=== PATIENT | male | born 1980 | race Caucasian/White ===

== ENCOUNTER 2021-04-16 16:05 | Emergency (ER) | payer MEDICAID ==
[2021-04-16] MEDS ORDERED: Ketorolac 60 MG/2 ML SDV IM ONE (16:55)
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
--- NOTE | 2021-04-17 10:31 | CRLCR ---
HISTORY: Left hip pain. TECHNIQUE: Two views of the left hip. COMPARISON: No prior. 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 There is degenerative arthrosis of the left hip with moderate osteophyte formation. Ossified body is present inferiorly. No acute fracture. IMPRESSION: 1. 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 2. Degenerative arthrosis of the left hip with moderate osteophyte formation. No joint space narrowing. Ossified body inferiorly. Dictated by Levon Abdi MD @ 04/17/2021 10:30:[address] Levon Abdi @ Apr 17 2021 10:30AM
== END 2021-04-16 17:56 | disposition home or self-care (01) ==
LOC: JP.ED 16:05
DX: M25.552 Pain in left hip (principal); Z88.0 Allergy status to penicillin; Z72.0 Tobacco use
CPT/HCPCS: 73502; 96372; 99282; 99283; J1885

== ENCOUNTER 2021-05-08 05:13 | Inpatient (IN) | payer MEDICAID ==
[2021-05-08] MEDS ORDERED: Lactated Ringers 1,000 ML IV SCH (06:00)
[2021-05-08 06:20] LABS: CORONAVIRUS COVID-19 NAA NEGATIVE (NEGATIVE)
[2021-05-08] MEDS ORDERED: Povidone-Iodine 10% Soln 118.25 ML Bottle ONE (06:38)
[2021-05-08] MEDS ORDERED: Nozin Nasal Sanitizer NASBOTH SCH (07:00)
[2021-05-08] MEDS ORDERED: fentaNYL 100 MCG/2 ML SDV ONE ×3 (07:11→10:57)
[2021-05-08] MEDS ORDERED: Midazolam 1 MG/ML 2 ML SDV ONE ×2 (07:11→08:07)
[2021-05-08] MEDS ORDERED: Propofol 200 MG/20 ML SDV ONE (07:13)
[2021-05-08] MEDS ORDERED: ceFAZolin 2 GM in Sodium Chloride 0.9% 100 ML IV ONE (07:15)
[2021-05-08] MEDS ORDERED: ceFAZolin 2 GM in Premix Bag 1 BAG IV ONE (07:15)
[2021-05-08] MEDS ORDERED: Tranexamic Acid 1,000 MG in Sodium Chloride 0.9% 50 ML IV ONE (07:45)
[2021-05-08] MEDS ORDERED: Ondansetron 4 MG/2 ML SDV ONE (08:12)
[2021-05-08] MEDS ORDERED: Rocuronium 50 MG/5 ML Vial ONE (08:12)
[2021-05-08] MEDS ORDERED: Dexamethasone 4 MG/ML SDV ONE (08:12)
[2021-05-08] MEDS ORDERED: Succinylcholine 200 MG/10 ML MDV ONE (08:12)
[2021-05-08] MEDS ORDERED: Neostigmine Methylsulfate 1 MG/ML 5 ML Syringe ONE (08:51)
[2021-05-08] MEDS ORDERED: Glycopyrrolate 0.2 MG/ML 5 ML MDV ONE (08:51)
[2021-05-08] MEDS ORDERED: fentaNYL 250 MCG/5 ML SDV ONE ×2 (09:00→10:00)
[2021-05-08] MEDS ORDERED: Lactated Ringers 1,000 ML ONE (09:34)
[2021-05-08] MEDS ORDERED: Tranexamic Acid 1,000 MG in Sodium Chloride 0.9% 50 ML IV PRN (10:00)
[2021-05-08] MEDS ORDERED: Acetaminophen/HYDROcodone 325-5 MG Tab PO PRN (11:09)
[2021-05-08] MEDS ORDERED: Magnesium Hydroxide 400 MG/5 ML Susp 30 ML Cup PO PRN (11:09)
[2021-05-08] MEDS ORDERED: Acetaminophen 325 MG Tab PO PRN (11:09)
[2021-05-08] MEDS ORDERED: Ondansetron 4 MG/2 ML SDV IVPUSH PRN (11:09)
[2021-05-08] MEDS ORDERED: Morphine 2 MG/ML SYRINGE SUBCUT PRN (11:09)
[2021-05-08] MEDS ORDERED: Morphine 2 MG/ML SYRINGE IVPUSH ONE (11:40)
[2021-05-08] MEDS ORDERED: hydrOXYzine HCL 100 MG/2 ML SDV IM ONE (11:52)
[2021-05-08] MEDS ORDERED: fentaNYL 100 MCG/2 ML SDV IVPUSH ONE (11:52)
--- NOTE | 2021-05-08 12:15 | CR ---
Pelvis 1V or 2V CLINICAL HISTORY: Left hip arthroplasty FINDINGS: Patient is status post placement of a total left hip arthroplasty. Components appear well seated. IMPRESSION: Status post total left hip arthroplasty
[2021-05-08] MEDS: Sodium Chloride 0.9% 1,000 ML IV SCH ×2 (12:16→17:49)
[2021-05-08] MEDS ORDERED: Labetalol 20 MG/4 ML Syringe IVPUSH ONE (12:22)
[2021-05-08] MEDS: Acetaminophen/oxyCODONE 325-5 MG Tab PO PRN ×2 (13:01→22:08)
[2021-05-08] MEDS: Ketorolac 30 MG/ML SDV IVPUSH PRN ×2 (13:02→22:08)
[2021-05-08] MEDS: Gabapentin 300 MG Cap PO SCH ×2 (14:53→21:01)
[2021-05-08] MEDS: ceFAZolin 1 GM in Premix Bag 1 BAG IV SCH ×2 (14:54→21:02)
[2021-05-08] MEDS: Nozin Nasal Sanitizer NASBOTH SCH (21:00)
[2021-05-08] MEDS: Docusate Sodium 100 MG Cap PO SCH (21:01)
[2021-05-08] MEDS ORDERED: Nicotine 14 MG/24 Hr Patch TRDERM SCH (21:45)
[2021-05-09] MEDS: Acetaminophen/oxyCODONE 325-5 MG Tab PO PRN ×5 (01:57→19:51)
[2021-05-09] MEDS: Sodium Chloride 0.9% 1,000 ML IV SCH (03:47)
[2021-05-09] MEDS: ceFAZolin 1 GM in Premix Bag 1 BAG IV SCH (05:40)
[2021-05-09] MEDS: Ketorolac 30 MG/ML SDV IVPUSH PRN ×3 (06:02→22:23)
--- NOTE | 2021-05-09 08:01 | PCM.SURGPN ---
- General Info Date of Service: 05/09/21 Date of Surgery/Procedure: 05/08/21 POD#: 1 Post-Op Diagnosis: left hip osteoarthritis Functional Status: Reports: Tolerating Diet, Urinating, Incentive Spirometry - Review of Systems General: Reports: No Symptoms HEENT: Reports: No Symptoms Pulmonary: Reports: No Symptoms Cardiovascular: Reports: No Symptoms Gastrointestinal: Reports: No Symptoms Genitourinary: Reports: No Symptoms Musculoskeletal: Reports: Leg Pain (left ), Joint Pain (left hip ) Skin: Reports: No Symptoms Neurological: Reports: No Symptoms Psychiatric: Reports: No Symptoms - Patient Data Vitals - Most Recent: Last Vital Signs Temp 96.1 F L 05/09/21 07:00 Pulse 65 05/09/21 07:00 Resp 16 05/09/21 07:00 BP 125/75 05/09/21 07:00 Pulse Ox 97 05/09/21 07:00 Weight - Most Recent: 250 lb 4.8 oz I&O - Last 24 Hours: Intake & Output 05/08/21 05/09/21 05/09/21 22:59 06:59 14:59 Intake Total 1300 2890 Output Total 1350 Balance 1300 1540 Lab Results Last 24 Hrs: Laboratory Results - last 24 hr 05/09/21 Range/Units 04:30 WBC 12.3 H (4.5-11.0) K/uL RBC 3.62 L (4.30-5.90) M/uL Hgb 11.0 L D (12.0-15.0) g/dL Hct 33.4 L (40.0-54.0) % MCV 92 (80-98) fL MCH 30 (27-31) pg MCHC 33 (32-36) % Plt Count 116 L (150-400) K/uL Med Orders - Current: Current Medications Acetaminophen (Acetaminophen 325 Mg Tab) 650 mg PO Q4H PRN PRN Reason: Pain/Fever Hydrocodone Bitart/Acetaminophen (Acetaminophen/Hydrocodone 325-5 Mg Tab) 1 tab PO Q4H PRN PRN Reason: Pain (mild 1-3) Bandage/Support Products (Nozin Nasal Grad Intern) 1 applic NASBOTH BID [facility] Stop: 05/14/21 21:01 Last Admin: 05/08/21 21:00 Dose: 1 each Documented by: Docusate Sodium (Docusate Sodium 100 Mg Cap) 100 mg PO BID [facility] Last Admin: 05/08/21 21:01 Dose: Not Given Documented by: Enoxaparin Sodium (Enoxaparin 30 Mg/0.3 Ml Syringe) 30 mg SUBCUT DAILY [facility] Gabapentin (Gabapentin 300 Mg Cap) 600 mg PO TID [facility] Last Admin: 05/08/21 21:01 Dose: 600 mg Documented by: Ketorolac Tromethamine (Ketorolac 30 Mg/Ml Sdv) 30 mg IVPUSH Q6H PRN PRN Reason: Breakthrough Pain Last Admin: 05/09/21 06:02 Dose: 30 mg Documented by: Magnesium Hydroxide (Magnesium Hydroxide 400 Mg/5 Ml Susp 30 Ml Cup) 30 ml PO Q6H PRN PRN Reason: Stool Softener Morphine Sulfate (Morphine 2 Mg/Ml Syringe) 1 mg IV Q1H PRN PRN Reason: Breakthrough Pain Nicotine (Nicotine 14 Mg/24 Hr Patch) 14 mg TRDERM DAILY [facility] Last Admin: 05/08/21 22:02 Dose: 14 mg Documented by: Nicotine (Nicotine 7 Mg/24 Hr Patch) 7 mg TRDERM DAILY [facility] Ondansetron HCl (Ondansetron 4 Mg/2 Ml Sdv) 4 mg IVPUSH Q6H PRN PRN Reason: Nausea/Vomiting Oxycodone/Acetaminophen (Acetaminophen/Oxycodone 325-5 Mg Tab) 1 - 2 tab PO Q4H PRN PRN Reason: Pain Last Admin: 05/09/21 06:03 Dose: 1 tab Documented by: Triamterene/Hydrochlorothiazide (Hydrochlorothiazide/Triamterene 25-37.5 Tab) 1 each PO DAILY [facility] Discontinued Medications Bandage/Support Products (Nozin Nasal Grad Intern) 1 applic NASBOTH BID [facility] Last Admin: 05/08/21 06:12 Dose: 1 applic Documented by: Dexamethasone (Dexamethasone 4 Mg/Ml Sdv) Confirm Administered Dose 4 mg .ROUTE .STK-MED ONE Stop: 05/08/21 08:13 Fentanyl (Fentanyl 100 Mcg/2 Ml Sdv) Confirm Administered Dose 100 mcg .ROUTE .STK-MED ONE Stop: 05/08/21 07:12 Fentanyl (Fentanyl 100 Mcg/2 Ml Sdv) Confirm Administered Dose 100 mcg .ROUTE .STK-MED ONE Stop: 05/08/21 08:09 Fentanyl (Fentanyl 250 Mcg/5 Ml Sdv) Confirm Administered Dose 250 mcg .ROUTE .STK-MED ONE Stop: 05/08/21 09:01 Fentanyl (Fentanyl 250 Mcg/5 Ml Sdv) Confirm Administered Dose 250 mcg .ROUTE .STK-MED ONE Stop: 05/08/21 10:01 Fentanyl (Fentanyl 100 Mcg/2 Ml Sdv) Confirm Administered Dose 100 mcg .ROUTE .STK-MED ONE Stop: 05/08/21 10:58 Fentanyl (Fentanyl 100 Mcg/2 Ml Sdv) 50 mcg IVPUSH ONETIME ONE Stop: 05/08/21 11:53 Last Admin: 05/08/21 11:57 Dose: 50 mcg Documented by: Glycopyrrolate (Glycopyrrolate 0.2 Mg/Ml 5 Ml Mdv) Confirm Administered Dose 1 mg .ROUTE .STK-MED ONE Stop: 05/08/21 08:52 Hydroxyzine HCl (Hydroxyzine Hcl 100 Mg/2 Ml Sdv) 100 mg IM ONETIME ONE Stop: 05/08/21 11:53 Last Admin: 05/08/21 12:00 Dose: 100 mg Documented by: Tranexamic Acid 1,000 mg/ (Sodium Chloride) 60 mls @ 240 mls/hr IV ONETIME ONE Stop: 05/08/21 07:59 Last Admin: 05/08/21 07:49 Dose: 240 mls/hr Documented by: Tranexamic Acid 1,000 mg/ (Sodium Chloride) 60 mls @ 240 mls/hr IV ASDIRECTED PRN PRN Reason: 2ND DOSE IF REQUESTED BY Lactated Ringer's (Ringers, Lactated) 1,000 mls @ 75 mls/hr IV ASDIRECTED [facility] Last Admin: 05/08/21 06:14 Dose: 75 mls/hr Documented by: Cefazolin Sodium/Dextrose 2 gm (/ Premix) 50 mls @ 100 mls/hr IV ONETIME ONE Stop: 05/08/21 07:44 Last Admin: 05/08/21 07:49 Dose: 100 mls/hr Documented by: Lactated Ringer's (Ringers, Lactated) Confirm Administered Dose 1,000 mls @ as directed .ROUTE .ST-MED ONE Stop: 05/08/21 09:35 Sodium Chloride (Normal Saline) 1,000 mls @ 125 mls/hr IV ASDIRECTED [facility] Last Admin: 05/09/21 03:47 Dose: 125 mls/hr Documented by: Cefazolin Sodium/Dextrose 1 gm (/ Premix) 50 mls @ 100 mls/hr IV Q8H [facility] Stop: 05/09/21 06:29 Last Admin: 05/09/21 05:40 Dose: 100 mls/hr Documented by: Labetalol HCl (Labetalol 20 Mg/4 Ml Syringe) 10 mg IVPUSH ONETIME ONE; Protocol Stop: 05/08/21 12:23 Last Admin: 05/08/21 12:25 Dose: 10 mg Documented by: Midazolam HCl (Midazolam 1 Mg/Ml 2 Ml Sdv) Confirm Administered Dose 2 mg .ROUTE .STK-MED ONE Stop: 05/08/21 07:12 Midazolam HCl (Midazolam 1 Mg/Ml 2 Ml Sdv) Confirm Administered Dose 2 mg .ROUTE .STK-MED ONE Stop: 05/08/21 08:08 Morphine Sulfate (Morphine 2 Mg/Ml Syringe) 1 mg SUBCUT Q1H PRN PRN Reason: Breakthrough Pain Morphine Sulfate (Morphine 2 Mg/Ml Syringe) 2 mg IVPUSH ONETIME ONE Stop: 05/08/21 11:41 Last Admin: 05/08/21 11:36 Dose: 2 mg Documented by: Neostigmine Methylsulfate (Neostigmine Methylsulfate 1 Mg/Ml 5 Ml Syringe) Confirm Administered Dose 5 mg .ROUTE .STK-MED ONE Stop: 05/08/21 08:52 Ondansetron HCl (Ondansetron 4 Mg/2 Ml Sdv) Confirm Administered Dose 4 mg .ROUTE .STK-MED ONE Stop: 05/08/21 08:13 Povidone Iodine (Povidone-Iodine 10% Soln 118.25 Ml Bottle) Confirm Administered Dose 1 ml .ROUTE .STK-MED ONE Stop: 05/08/21 06:39 Last Admin: 05/08/21 08:38 Dose: 40 ml Documented by: Propofol (Propofol 200 Mg/20 Ml Sdv) Confirm Administered Dose 200 mg .ROUTE .STK-MED ONE Stop: 05/08/21 07:14 Rocuronium [place] (Rocuronium 50 Mg/5 Ml Vial) Confirm Administered Dose 50 mg .ROUTE .STK-MED ONE Stop: 05/08/21 08:13 Succinylcholine Chloride (Succinylcholine 200 Mg/10 Ml Mdv) Confirm Administered Dose 200 mg .ROUTE .STK-MED ONE Stop: 05/08/21 08:13 - Exam Wound/Incisions: Dressing Dry and Intact, No Drainage Quality Assessment: DVT Prophylaxis General: Alert, Oriented, Cooperative, No Acute Distress Extremities: Normal Capillary Refill, Leg Pain (left ), Limited Range of Motion Skin: Dry, Intact Neurological: No New Focal Deficit Psy/Mental Status: Alert, Normal Affect, Normal Mood Sepsis Event Note - Evaluation Sepsis Screening Result: No Definite Risk - Focused Exam Vital Signs: Vital Signs Temp Pulse Resp BP Pulse Ox 05/09/21 07:00 96.1 F L 65 16 125/75 97 05/09/21 01:11 97 F 70 16 129/77 97 05/08/21 20:43 97.7 F 74 16 148/87 H 99 - Problem List & Annotations (1) Status post total replacement of left hip SNOMED Code(s): 510275088617, 708050281782 Code(s): Z96.642 - PRESENCE OF LEFT ARTIFICIAL HIP JOINT Status: Acute Current Visit: Yes - Problem List Review Problem List Initiated/Reviewed/Updated: Yes - My Orders Last 24 Hours: Active Orders 24 hr Category Date Time Status Patient Status [ADT] Routine ADT 05/08/21 11:09 Active Ambulate [RC] PER UNIT ROUTINE Care 05/08/21 11:09 Active Head of Bed Elevation [RC] ASDIRECTED Care 05/08/21 11:09 Active Neurovascular Check [RC] BID Care 05/08/21 11:09 Active Notify Provider Intake and Out [RC] ASDIRECTED Care 05/08/21 11:09 Active Notify Provider Vital Signs [RC] ASDIRECTED Care 05/08/21 11:09 Active Oxygen Therapy [RC] PRN Care 05/08/21 11:09 Active Pneumonia Education [RC] UPON Care 05/08/21 11:09 Active Pulse Oximetry [RC] INTERMITTENT Care 05/08/21 11:09 Active RT Incentive Spirometry [RC] Q1HWA Care 05/08/21 11:09 Active Up to Chair [RC] QID Care 05/08/21 11:09 Active VTE/DVT Education [RC] Click to Edit Care 05/08/21 11:09 Active Vital Signs [RC] PER UNIT ROUTINE Care 05/08/21 11:09 Active Wound Care [RC] Q12H Care 05/08/21 11:09 Active Consult to Case Management/Dietary Director [CONS] Cons 05/08/21 11:09 Active Routine OT Evaluation and Treatment [CONS] Routine Cons 05/08/21 11:13 Active PT Evaluation and Treatment [CONS] Routine Cons 05/08/21 11:09 Active PT Evaluation and Treatment [CONS] Routine Cons 05/08/21 11:09 Active Regular Diet [DIET] Diet 05/08/21 Lunch Active Acetaminophen [TylenoL] Med 05/08/21 11:09 Active 650 mg PO Q4H PRN Acetaminophen/HYDROcodone [[place] 325-5 MG] Med 05/08/21 11:09 Active 1 tab PO Q4H PRN Acetaminophen/oxyCODONE [Percocet 325-5 MG] Med 05/08/21 11:16 Active 1 - 2 tab PO Q4H PRN Docusate Sodium [Colace] Med 05/08/21 21:00 Active 100 mg PO BID Enoxaparin [Lovenox] Med 05/09/21 09:00 Active 30 mg SUBCUT DAILY Gabapentin [Neurontin] Med 05/08/21 14:00 Active 600 mg PO TID HCTZ/Triamterene [Maxzide 25-37.5 MG] Med 05/09/21 09:00 Active 1 each PO DAILY Ketorolac [Toradol] Med 05/08/21 11:18 Active 30 mg IVPUSH Q6H PRN Magnesium Hydroxide [Milk of Magnesia] Med 05/08/21 11:09 Active 30 ml PO Q6H PRN Morphine Med 05/08/21 16:56 Active 1 mg IV Q1H PRN Nicotine [Habitrol] Med 05/08/21 21:45 Active 14 mg TRDERM DAILY Nicotine [Habitrol] Med 05/09/21 09:00 Ordered 7 mg TRDERM DAILY Nozin [ Nasal Grad Intern] Med 05/08/21 21:00 Active 1 applic NASBOTH BID Ondansetron [Zofran] Med 05/08/21 11:09 Active 4 mg IVPUSH Q6H PRN Antiembolic Hose [OM.PC] Per Unit Routine Oth 05/08/21 11:09 Ordered DME for Inpatients [OM.PC] Routine Ot 05/08/21 11:09 Ordered DVT/VTE Prophylaxis Reflex [OM.PC] Routine Oth 05/08/21 11:09 Ordered Ice Therapy [OM.PC] Per Unit Routine Ot 05/08/21 11:09 Ordered Oral Care [OM.PC] Routine Ot 05/08/21 11:09 Ordered Sequential Compression Device [OM.PC] Routine Ot 05/08/21 11:09 Ordered Sequential Compression Device [OM.PC] Routine Ot 05/08/21 11:09 Ordered Weight bearing status [OM.PC] Routine Ot 05/08/21 11:09 Ordered Resuscitation Status Routine Resus Stat 05/08/21 11:09 Ordered Medication Orders Acetaminophen (Acetaminophen 325 Mg Tab) 650 mg PO Q4H PRN PRN Reason: Pain/Fever Hydrocodone Bitart/Acetaminophen (Acetaminophen/Hydrocodone 325-5 Mg Tab) 1 tab PO Q4H PRN PRN Reason: Pain (mild 1-3) Bandage/Support Products (Nozin Nasal Grad Intern) 1 applic NASBOTH BID [facility] Stop: 05/14/21 21:01 Last Admin: 05/08/21 21:00 Dose: 1 each Documented by: CANELO Docusate Sodium (Docusate Sodium 100 Mg Cap) 100 mg PO BID [facility] Last Admin: 05/08/21 21:01 Dose: Not Given Documented by: CANELO Enoxaparin Sodium (Enoxaparin 30 Mg/0.3 Ml Syringe) 30 mg SUBCUT DAILY [facility] Gabapentin (Gabapentin 300 Mg Cap) 600 mg PO TID [facility] Last Admin: 05/08/21 21:01 Dose: 600 mg Documented by: Admin: 05/08/21 14:53 Dose: 600 mg Documented by: JOHN Ketorolac Tromethamine (Ketorolac 30 Mg/Ml Sdv) 30 mg IVPUSH Q6H PRN PRN Reason: Breakthrough Pain Last Admin: 05/09/21 06:02 Dose: 30 mg Documented by: Admin: 05/08/21 22:08 Dose: 30 mg Documented by: Admin: 05/08/21 13:02 Dose: 30 mg Documented by: JOHN Magnesium Hydroxide (Magnesium Hydroxide 400 Mg/5 Ml Susp 30 Ml Cup) 30 ml PO Q6H PRN PRN Reason: Stool Softener Morphine Sulfate (Morphine 2 Mg/Ml Syringe) 1 mg IV Q1H PRN PRN Reason: Breakthrough Pain Nicotine (Nicotine 14 Mg/24 Hr Patch) 14 mg TRDERM DAILY [facility] Last Admin: 05/08/21 22:02 Dose: 14 mg Documented by: CANELO Nicotine (Nicotine 7 Mg/24 Hr Patch) 7 mg TRDERM DAILY [facility] Ondansetron HCl (Ondansetron 4 Mg/2 Ml Sdv) 4 mg IVPUSH Q6H PRN PRN Reason: Nausea/Vomiting Oxycodone/Acetaminophen (Acetaminophen/Oxycodone 325-5 Mg Tab) 1 - 2 tab PO Q4H PRN PRN Reason: Pain Last Admin: 05/09/21 06:03 Dose: 1 tab Documented by: Admin: 05/09/21 01:57 Dose: 2 tab Documented by: Admin: 05/08/21 22:08 Dose: 2 tab Documented by: Admin: 05/08/21 13:01 Dose: 2 tab Documented by: JOHN Triamterene/Hydrochlorothiazide (Hydrochlorothiazide/Triamterene 25-37.5 Tab) 1 each PO DAILY [facility] - Assessment Assessment (Free Text/Narrative):: Patient is a pleasant 40 y/o male, status post left total hip arthroplasty, POD#1. Patient tolerated surgery well with no complications. No acute events overnight. Was hypertensive throughout yesterday, BP improving this morning. Anticipate home antihypertensive medication administration this morning. Did require 2L of O2 following operation, has since been weaned to room air and maintaining oxygen saturations >90%. White count is slightly elevated at 12.3 Patient denied subjective fever, chills, weakness, nor shortness of breath. Has been using incentive spirometer intermittently. Has been tolerating regular diet well. No nausea or emesis. Patient notes pain is well controlled this morning. Increase discomfort in left hip with transfers, but minimal to no pain at rest. Has transferred from bed to chair with FWW, but has not ambulated further than this. Will require status change from same day s urgery to inpatient to allow for further therapy services to progress ambulation abilities to be safe for discharge to home. Patient states the current 14 mg Nicotine patch is not helping, continues to have strong cravings. Exam: Left hip dressing is dry and intact. No surrounding erythema, ecchymosis, warmth to touch, nor drainage around dressing on left hip. Jude stockings on bilateral LEs, no significant pedal edema. Tibialis posterior pulse appreciated, 2+. Sensation to L LE intact. Dorsiflexion: 4+/5. Plantar flexion: 5/5. Plan: * Status change to inpatient to allow for patient to have additional physical therapy services to progress ambulation abilities to be safe for discharge to home * Patient to participate in PT and OT daily while in the hospital * Encouraged patient to use Incentive Spirometer hourly * Continue with current pain regimen * Continue with 30 mg Lovenox subcutaneous qd for chemical DVT/VTE prophylaxis while in the hospital. Will transition to Aspirin BID upon discharge. Bilateral LE SCDs for mechanical prophylaxis * IV to be saline locked this morning * Additional 7 mg Nicotine patch ordered this morning * Dressing to be changed on POD#2 by orthopedic provider * Anticipate discharge to home, likely tomorrow, pending ambulation status progresses, patient remains medically stable, and pain is controlled with PO medications
[2021-05-09] MEDS: Nicotine 21 MG/24 Hr Patch TRDERM SCH (08:24)
[2021-05-09] MEDS: Enoxaparin 30 MG/0.3 ML Syringe SUBCUT SCH (08:26)
[2021-05-09] MEDS: Nozin Nasal Sanitizer NASBOTH SCH ×2 (08:26→20:04)
[2021-05-09] MEDS: Gabapentin 300 MG Cap PO SCH ×3 (08:27→20:03)
[2021-05-09] MEDS: Docusate Sodium 100 MG Cap PO SCH ×2 (08:27→20:04)
[2021-05-09] MEDS: Hydrochlorothiazide/Triamterene 25-37.5 Tab PO SCH (08:27)
[2021-05-09] MEDS ORDERED: Nicotine 7 MG/24 Hr Patch TRDERM SCH (09:00)
[2021-05-09] MEDS: Morphine 2 MG/ML SYRINGE IV PRN (17:54)
[2021-05-10] MEDS: Acetaminophen/oxyCODONE 325-5 MG Tab PO PRN ×3 (02:10→10:56)
[2021-05-10] MEDS: Morphine 2 MG/ML SYRINGE IV PRN (08:36)
[2021-05-10] MEDS: Ketorolac 30 MG/ML SDV IVPUSH PRN (08:37)
[2021-05-10] MEDS: Enoxaparin 30 MG/0.3 ML Syringe SUBCUT SCH (08:42)
[2021-05-10] MEDS: Nicotine 21 MG/24 Hr Patch TRDERM SCH (08:42)
[2021-05-10] MEDS: Hydrochlorothiazide/Triamterene 25-37.5 Tab PO SCH (08:42)
[2021-05-10] MEDS: Docusate Sodium 100 MG Cap PO SCH (08:42)
[2021-05-10] MEDS: Gabapentin 300 MG Cap PO SCH ×2 (08:42→14:03)
[2021-05-10] MEDS: Nozin Nasal Sanitizer NASBOTH SCH (08:42)
--- NOTE | 2021-05-10 12:07 | PCM.DCSUM1 ---
Discharge Summary - Hospital Course HPI Initial Comments: Patient is a pleasant 40 y/o male, suffered from left hip osteoarthritis. Symptoms refractory to conservative management, elected to undergo a left total hip arthroplasty. Patient tolerated surgery well, no complications. Hospital stay prolonged to allow for additional therapy services to be safe for discharge home and obtaining adequate pain control with PO medications. Diagnosis: Stroke: No Modified Williams Scale: No Symptoms at All Modified Williams Scale Score: 0 - Discharge Data Discharge Date: 05/10/21 Discharge Disposition: Home, Self-Care 01 Condition: Good - Referral to Home Health Date of Face to Face Encounter: 05/10/21 Reason for Homebound Status: Motivated to go home, demonstrates independence in ADLs with assistive equipment, ambulates safely with FWW, demonstrates competency on stairs Primary Care Physician: Jesus Vargas MD - Discharge Diagnosis/Problem(s) (1) Status post total replacement of left hip SNOMED Code(s): [id number], [id number] ICD Code: Z96.642 - PRESENCE OF LEFT ARTIFICIAL HIP JOINT Status: Acute Current Visit: Yes - Patient Summary/Data Operative Procedure(s) Performed: left total hip arthroplasty Consults: Consultations 05/08/21 11:09 Consult to Case Management/Director [employer] [CONS] Routine Comment: Physician Instructions: Discharge placement post hip surgery Service(s) to be Consulted: Case Management Special Instructions: s/p L JOAO, likely dc to home. PT Evaluation and Treatment [CONS] Routine Please Evaluate and Treat. PT Reason for Consult: Ambulation Discharge Disposition: Home w Home Health Special Instructions: posterior hip precautions, WBAT This query below is only for informational purposes and is not editable. PT Evaluation and Treatment [CONS] Routine Please Evaluate and Treat. PT Reason for Consult: Post op Ortho Surgery Hip Pending Discharge: Yes, 2- -3 days Special Instructions: Schedule first outpatient P.T. appointment 3 - 5 days post discharge This query below is only for informational purposes and is not editable. 05/08/21 11:13 OT Evaluation and Treatment [CONS] Routine Please Evaluate and Treat. OT Reason for Consult: ADL's Special Instructions: Status post Hip Surgery This query below is only for informational purposes and is not editable. Hospital Course: Patient is a pleasant 40 y/o male, s/p left total hip arthroplasty, POD#2. Patient tolerated surgery well, there were no major complications. No acute events in the post operative period. Patient's pain has been well controlled throughout stay. Utilized Morphine, Toradol, and Percocet throughout stay, weaned to Percocet only prior to discharge and maintained adequate pain control with this. Tolerated regular diet well, no nausea or emesis. Patient has remained hemodynamically stable throughout stay. No fevers or chills, nor dyspnea. Did require 2L O2 following surgery, but has been on room air since the morning of POD#1 maintaining O2 saturations >90%. HgB POD#1 declined to 11.0; denied dizziness, orthostatic hypotension, nor fatigue. Denied dyspnea. IV was saline locked POD#1. Patient showered & left hip dressing changed POD#2. Patient participated in PT and OT daily throughout stay. Demonstrated competency ambulating with FWW up to 162 ft. Also ascended and descended stairs safely. Performed bilateral LE strengthening exercises. Able to complete ADLs with minimal assistive equipment. Exam: Incision well approximated and intact, steristrips above incision with minimal dried drainage. No surrounding erythema of incision, mild warmth to to uch. New dressing applied over L hip; dry and intact. Ecchymosis present over left hip. No significant edema present on LLE. L posterior tibialis pulse appreciated, 2+. Sensation to L LE intact. Dorsiflexion: 5/5. Plantar flexion: 5/5. L calf is soft and supple. Negative sebastian's sign. - Patient Instructions Diet: Regular Diet as Tolerated Activity: Apply Ice, Full Weight Bearing Driving: Do Not Drive Showering/Bathing: May Shower Wound/Incision Care: Keep Operative Site/Wound Site Clean and Dry Notify Provider of: Fever, Increased Pain, Swelling and Redness, Drainage - Discharge Plan *PRESCRIPTION DRUG MONITORING PROGRAM REVIEWED*: Yes *COPY OF PRESCRIPTION DRUG MONITORING REPORT IN PATIENT AMBAR: Not Applicable Prescriptions/Med Rec: Acetaminophen/oxyCODONE [Percocet 325-5 MG] 1 - 2 each PO Q6H PRN 7 Days #42 tab PRN Reason: Pain Home Medications: Home Meds Gabapentin [Neurontin] 600 mg PO TID 04/16/21 [History] Ibuprofen 600 mg PO Q6H PRN #30 tablet 04/16/21 [Rx] Triamterene/Hydrochlorothiazid [Triamterene-HCTZ 37.5-25 MG] 1 tab PO DAILY 04/16/21 [History] Acetaminophen/oxyCODONE [Percocet 325-5 MG] 1 - 2 each PO Q6H PRN 7 Days #42 tab 05/10/21 [Rx] Aspirin [Halfprin] 81 mg PO BID 05/10/21 [History] Oxygen Therapy Mode: Room Air Patient Handouts: Steps to Quit Smoking, [id number], Coping with Quitting Smoking, Total Hip Replacement, [id number], Preventing Problems After Surgery, Preventing Constipation After Surgery Referrals: Amanda Key PA [Ordering Only Provider] - 05/23/21 11:00 am (Please arrive 15 minutes early to register for your appointment.) - Discharge Summary/Plan Comment DC Time >30 min.: No Discharge Summary/Plan Comment: Plan: * Anticipate discharge to home this afternoon with outpatient PT orders. * Pain: prescription of 5mg-325mg Percocet sent to patients pharmacy. * Patient is on gabapentin at home; discussed risks of respiratory depression when combined with opioids. Patient expressed understanding of warning signs of respiratory depression. * DVT/VTE prophylaxis: patient educated to take 1 Aspirin BID for the next month to prevent blood clots. * Discussed smoking cessation with patient, he is interested. RN provided smoking cessation education in discharge packet. * Discussed warning signs of DVT/VTE and SSIs; return parameters of both discussed, patient expressed understanding. * Patient to continue with Nozin spray BID. * Patient to follow up with ortho clinic in 2 weeks. Patient encouraged to call with any concerns or questions that arise prior to scheduled apt. * Patient agreeable and expressed understanding of the above plan. - General Info Date of Service: 05/10/21 Admission Dx/Problem (Free Text: s/p left total hip arthroplasty Functional Status: Reports: Pain Controlled, Tolerating Diet, Ambulating (with FWW ), Urinating, Incentive Spirometry - Review of Systems General: Reports: No Symptoms HEENT: Reports: No Symptoms Pulmonary: Reports: No Symptoms Cardiovascular: Reports: No Symptoms Gastrointestinal: Reports: No Symptoms Genitourinary: Reports: No Symptoms Musculoskeletal: Reports: Leg Pain (left ), Joint Pain (left hip ) Neurological: Reports: No Symptoms Psychiatric: Reports: No Symptoms - Patient Data Vitals - Most Recent: Last Vital Signs Temp 95.6 F L 05/10/21 10:29 Pulse 65 05/10/21 10:29 Resp 18 05/10/21 10:29 BP 134/81 05/10/21 10:29 Pulse Ox 100 05/10/21 10:29 Weight - Most Recent: 250 lb 4.794 oz I&O - Last 24 hours: Intake & Output 05/09/21 05/10/21 05/10/21 22:59 06:59 14:59 Intake Total 500 500 Balance 500 500 Med Orders - Current: Current Medications Acetaminophen (Acetaminophen 325 Mg Tab) 650 mg PO Q4H PRN PRN Reason: Pain/Fever Hydrocodone Bitart/Acetaminophen (Acetaminophen/Hydrocodone 325-5 Mg Tab) 1 tab PO Q4H PRN PRN Reason: Pain (mild 1-3) Bandage/Support Products (Nozin Nasal Product Promoter Retail Pet) 1 applic NASBOTH BID [facility] Stop: 05/14/21 21:01 Last Admin: 05/10/21 08:42 Dose: 1 each Documented by: Docusate Sodium (Docusate Sodium 100 Mg Cap) 100 mg PO BID [facility] Last Admin: 05/10/21 08:42 Dose: 100 mg Documented by: Enoxaparin Sodium (Enoxaparin 30 Mg/0.3 Ml Syringe) 30 mg SUBCUT DAILY [facility] Last Admin: 05/10/21 08:42 Dose: 30 mg Documented by: Gabapentin (Gabapentin 300 Mg Cap) 600 mg PO TID [facility] Last Admin: 05/10/21 08:42 Dose: 600 mg Documented by: Ketorolac Tromethamine (Ketorolac 30 Mg/Ml Sdv) 30 mg IVPUSH Q6H PRN PRN Reason: Breakthrough Pain Last Admin: 05/10/21 08:37 Dose: 30 mg Documented by: Magnesium Hydroxide (Magnesium Hydroxide 400 Mg/5 Ml Susp 30 Ml Cup) 30 ml PO Q6H PRN PRN Reason: Stool Softener Morphine Sulfate (Morphine 2 Mg/Ml Syringe) 1 mg IV Q1H PRN PRN Reason: Breakthrough Pain Last Admin: 05/10/21 08:36 Dose: 1 mg Documented by: Nicotine (Nicotine 21 Mg/24 Hr Patch) 21 mg TRDERM DAILY [facility] Last Admin: 05/10/21 08:42 Dose: 21 mg Documented by: Ondansetron HCl (Ondansetron 4 Mg/2 Ml Sdv) 4 mg IVPUSH Q6H PRN PRN Reason: Nausea/Vomiting Oxycodone/Acetaminophen (Acetaminophen/Oxycodone 325-5 Mg Tab) 1 - 2 tab PO Q4H PRN PRN Reason: Pain Last Admin: 05/10/21 10:56 Dose: 2 tab Documented by: Triamterene/Hydrochlorothiazide (Hydrochlorothiazide/Triamterene 25-37.5 Tab) 1 each PO DAILY [facility] Last Admin: 05/10/21 08:42 Dose: 1 each Documented by: Discontinued Medications Bandage/Support Products (Nozin Nasal Product Promoter Retail Pet) 1 applic NASBOTH BID [facility] Last Admin: 05/08/21 06:12 Dose: 1 applic Documented by: Dexamethasone (Dexamethasone 4 Mg/Ml Sdv) Confirm Administered Dose 4 mg .ROUTE .STK-MED ONE Stop: 05/08/21 08:13 Fentanyl (Fentanyl 100 Mcg/2 Ml Sdv) Confirm Administered Dose 100 mcg .ROUTE .STK-MED ONE Stop: 05/08/21 07:12 Fentanyl (Fentanyl 100 Mcg/2 Ml Sdv) Confirm Administered Dose 100 mcg .ROUTE .STK-MED ONE Stop: 05/08/21 08:09 Fentanyl (Fentanyl 250 Mcg/5 Ml Sdv) Confirm Administered Dose 250 mcg .ROUTE .STK-MED ONE Stop: 05/08/21 09:01 Fentanyl (Fentanyl 250 Mcg/5 Ml Sdv) Confirm Administered Dose 250 mcg .ROUTE .STK-MED ONE Stop: 05/08/21 10:01 Fentanyl (Fentanyl 100 Mcg/2 Ml Sdv) Confirm Administered Dose 100 mcg .ROUTE .STK-MED ONE Stop: 05/08/21 10:58 Fentanyl (Fentanyl 100 Mcg/2 Ml Sdv) 50 mcg IVPUSH ONETIME ONE Stop: 05/08/21 11:53 Last Admin: 05/08/21 11:57 Dose: 50 mcg Documented by: Glycopyrrolate (Glycopyrrolate 0.2 Mg/Ml 5 Ml Mdv) Confirm Administered Dose 1 mg .ROUTE .STK-MED ONE Stop: 05/08/21 08:52 Hydroxyzine HCl (Hydroxyzine Hcl 100 Mg/2 Ml Sdv) 100 mg IM ONETIME ONE Stop: 05/08/21 11:53 Last Admin: 05/08/21 12:00 Dose: 100 mg Documented by: Tranexamic Acid 1,000 mg/ (Sodium Chloride) 60 mls @ 240 mls/hr IV ONETIME ONE Stop: 05/08/21 07:59 Last Admin: 05/08/21 07:49 Dose: 240 mls/hr Documented by: Tranexamic Acid 1,000 mg/ (Sodium Chloride) 60 mls @ 240 mls/hr IV ASDIRECTED PRN PRN Reason: 2ND DOSE IF REQUESTED BY Lactated Ringer's (Ringers, Lactated) 1,000 mls @ 75 mls/hr IV ASDIRECTED [facility] Last Admin: 05/08/21 06:14 Dose: 75 mls/hr Documented by: Cefazolin Sodium/Dextrose 2 gm (/ Premix) 50 mls @ 100 mls/hr IV ONETIME ONE Stop: 05/08/21 07:44 Last Admin: 05/08/21 07:49 Dose: 100 mls/hr Documented by: Lactated Ringer's (Ringers, Lactated) Confirm Administered Dose 1,000 mls @ as directed .ROUTE .STK-MED ONE Stop: 05/08/21 09:35 Sodium Chloride (Normal Saline) 1,000 mls @ 125 mls/hr IV ASDIRECTED [facility] Last Admin: 05/09/21 03:47 Dose: 125 mls/hr Documented by: Cefazolin Sodium/Dextrose 1 gm (/ Premix) 50 mls @ 100 mls/hr IV Q8H [facility] Stop: 05/09/21 06:29 Last Admin: 05/09/21 05:40 Dose: 100 mls/hr Documented by: Labetalol HCl (Labetalol 20 Mg/4 Ml Syringe) 10 mg IVPUSH ONETIME ONE; Protocol Stop: 05/08/21 12:23 Last Admin: 05/08/21 12:25 Dose: 10 mg Documented by: Midazolam HCl (Midazolam 1 Mg/Ml 2 Ml Sdv) Confirm Administered Dose 2 mg .ROUTE .STK-MED ONE Stop: 05/08/21 07:12 Midazolam HCl (Midazolam 1 Mg/Ml 2 Ml Sdv) Confirm Administered Dose 2 mg .ROUTE .STK-MED ONE Stop: 05/08/21 08:08 Morphine Sulfate (Morphine 2 Mg/Ml Syringe) 1 mg SUBCUT Q1H PRN PRN Reason: Breakthrough Pain Morphine Sulfate (Morphine 2 Mg/Ml Syringe) 2 mg IVPUSH ONETIME ONE Stop: 05/08/21 11:41 Last Admin: 05/08/21 11:36 Dose: 2 mg Documented by: Neostigmine Methylsulfate (Neostigmine Methylsulfate 1 Mg/Ml 5 Ml Syringe) Confirm Administered Dose 5 mg .ROUTE .STK-MED ONE Stop: 05/08/21 08:52 Nicotine (Nicotine 14 Mg/24 Hr Patch) 14 mg TRDERM DAILY [facility] Last Admin: 05/08/21 22:02 Dose: 14 mg Documented by: Nicotine (Nicotine 7 Mg/24 Hr Patch) 7 mg TRDERM DAILY [facility] Ondansetron HCl (Ondansetron 4 Mg/2 Ml Sdv) Confirm Administered Dose 4 mg .ROUTE .STK-MED ONE Stop: 05/08/21 08:13 Povidone Iodine (Povidone-Iodine 10% Soln 118.25 Ml Bottle) Confirm Administered Dose 1 ml .ROUTE .STK-MED ONE Stop: 05/08/21 06:39 Last Admin: 05/08/21 08:38 Dose: 40 ml Documented by: Propofol (Propofol 200 Mg/20 Ml Sdv) Confirm Administered Dose 200 mg .ROUTE .STK-MED ONE Stop: 05/08/21 07:14 Rocuronium [place] (Rocuronium 50 Mg/5 Ml Vial) Confirm Administered Dose 50 mg .ROUTE .STK-MED ONE Stop: 05/08/21 08:13 Succinylcholine Chloride (Succinylcholine 200 Mg/10 Ml Mdv) Confirm Administered Dose 200 mg .ROUTE .STK-MED ONE Stop: 05/08/21 08:13 - Exam General: Reports: Alert, Oriented, Cooperative, No Acute Distress Extremities: Normal Capillary Refill, Leg Pain (left ), Increased Warmth Skin: Reports: Dry, Intact Wound/Incisions: Reports: Healing Well, Dressing Dry and Intact, No Drainage Neurological: Reports: No New Focal Deficit, Sensation Intact Psy/Mental Status: Reports: Alert, Normal Affect, Normal Mood
--- NOTE | 2021-05-22 14:21 | OR ---
DATE OF PROCEDURE: 05/08/2021 SURGEON: Nathan Baez MD PREOPERATIVE DIAGNOSIS: Osteoarthritis, left hip. POSTOPERATIVE DIAGNOSIS: Osteoarthritis, left hip, with loose bodies. PROCEDURE PERFORMED: Left total hip arthroplasty using size 58 trabecular metal Continuum cup, size 6 stem, ML taper, standard-offset 36 mm ceramic head with +0 length. PACKER AND CARRY OUT: RICHIE Becerra ANESTHESIA: Spinal with sedation. INDICATIONS: Melissa is a 40-year-old gentleman with a history of progressive left hip pain for the past couple of years which has gotten significantly worse these last few months. X- rays show degenerative changes consistent with changes secondary to femoral acetabular impingement, particularly given his young age. There is also evidence of loose bodies on x- ray. He now presents for left total hip arthroplasty. Risks, benefits, and potential complications of the procedure were discussed. Skilled director surgical's services were utilized, RICHIE Becerra, for exposure, leg manipulation during reduction and trialing, and closure. DESCRIPTION OF PROCEDURE: After adequate anesthesia was obtained, the patient was placed in a lateral decubitus position and secured with the hip positioner. The left hip and leg were prepped and draped in a sterile fashion. An incision was made over the greater trochanter, carried down through the subcutaneous tissues, and hemostasis obtained with electrocautery. The tensor fascia was split in line with its fibers, and a Charnley retractor was placed. The patient had extremely limited internal rotation. The short external rotators were taken off the greater trochanter posteriorly. The capsule was then entered in a T-fashion. Small to moderate effusion was present. With some difficulty, the hip was dislocated and retractor placed about the femoral neck. A femoral neck cut was made with an oscillating saw. Significant degenerative changes noted over the femoral head with deformity secondary to degenerative changes and impingement. Two fairly large loose bodies were present within the joint, and these were removed. Retractors were placed about the acetabulum. Remaining portion of the acetabular labrum was excised, and a portion of this was calcified. Soft tissues were cleared from the central portion of the acetabulum and the stem and sequentially reamed to 58 mm. Continuum 58 mm cup was press-fit into position and contact noted at position of the screw holes. Acetabular screw was placed with excellent purchase. The liner was tapped into position. Attention was returned to the femur. A box osteotome was used to remove the lateral femoral neck cortex, a hand awl was placed down the canal, and the lateralizing reamer was utilized. The canal was then sequentially broached. The patient had a very thick cortical rim and very narrow metaphysis, and after some broaching, a size 6 stem showed fit within the canal. A femoral trial was done, initially attempted with a 40 mm head with a liner that was in place. Due to slight overhang of the cup posterosuperiorly, the hip could not be easily reduced. After attempting reduction with different neck lengths, re-positioning of broach trial, etc., decision was made to switch the head out to a 36 mm head. The previous liner was removed by making a drill hole adjacent to the rim and then levering this out with screw. It was irrigated, and a liner for a 36 mm head was placed. Trial reductions were then repeated which allowed reduction without damage to the femoral head. It showed excellent stability and recreation of limb length. The trial was removed, and a size 6 ML taper stem was press-fit into position. Trialing was again done with 0 neck length chosen. The ceramic head was tapped onto the Urrutia taper and reduced. The hip was irrigated including dilute Betadine solution. The posterior capsule was closed with #2 Ethibond. Tensor fascia was closed with #2 Ethibond in a running locking fashion, and the skin was closed with 2-0 Vicryl and a running 3-0 Monocryl. Steri-Strips were applied. Sterile dressing was then placed. The patient tolerated the procedure well. There were no complications. He was taken from the operating room in stable condition. Nathan Baez MD /[id number]
== END 2021-05-10 14:25 | disposition home or self-care (01) | DRG 554 ==
LOC: JP.SDS 05:13 → JP.MS 11:16 → JP.SDS 05-09 13:09
PROVIDERS: ADMIT Specialist; ATTEND Specialist
DX: M16.12 Unilateral primary osteoarthritis, left hip (principal); G90.521 Complex regional pain syndrome I of right lower limb; M24.052 Loose body in left hip; I10 Essential (primary) hypertension; Z20.822 Contact with and (suspected) exposure to COVID-19; Z88.0 Allergy status to penicillin
CPT/HCPCS: 0241U; 36415; 72170; 72170-26; 80053; 85027; 97110-GP; 97116-GP; 97162-GP; 97165-GO; 97530-GP; 97535-GP; A9270-GY; C1713; C1776; J0330; J0690; J1100; J1650; J1885; J2250; J2270; J2405; J2704; J2710; J3010; J3410; J3490; J7030; J7120

== ENCOUNTER 2021-05-12 13:20 | Emergency (ER) | payer MEDICAID ==
[2021-05-12] MEDS ORDERED: Ketorolac 30 MG/ML SDV IVPUSH ONE (14:09)
[2021-05-12] MEDS ORDERED: Sodium Chloride 0.9% 1,000 ML IV SCH (14:45)
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
--- NOTE | 2021-05-13 07:09 | ANES ---
DATE OF SERVICE: 05/12/2021 INDICATIONS: Melissa is a 40-year-old male in emergency department. I was consulted by Dr. Monge due to the patient in with headache, postdural puncture from a hip procedure on this last Saturday. #[id number]. Upon arrival, I found a healthy -uxet-ywg male with definite history of postdural puncture headache. With discussing his symptoms, I discussed with him the procedure with an epidural blood patch as well as risks and benefits of that as well as postprocedural care with increased fluids, increased caffeine intake, as well as return if the patch does not work that well for him. He voiced agreement. At that time, consent was received. DESCRIPTION OF PROCEDURE: I had him seated at the edge of the bed. Betadine prep x3 to lumbar region. Sterile drape was placed. 1% lidocaine skin wheal as well as deep at the L3- L4 region. 17-gauge Tuohy was placed with loss of resistance with ease. Negative CSF, negative heme, negative paresthesia. I had one of the nurses withdraw some of the patient's own autologous blood. She was able to get 11 mL without having issues. I injected that 11 mL. She brought another nurse in to attempt 2nd IV for another 9 mL in between. I flushed the needle with normal saline maintaining sterile technique throughout. After the 9 mL was in, I flushed with a small amount of saline, removed the needle, back was washed, and Band- Aid over the injection site. Placed him in supine position and then reminded him post procedural cares. He did voice agreement. Please refer to nurse's notes for vital signs and neuro status, which were unchanged, within normal limits. Thank you again for your consult. The patient was discharged after ER protocol was completed. Jsoe L Sams CRNA /[id number]
== END 2021-05-12 16:38 | disposition home or self-care (01) ==
LOC: JP.ED 13:20
DX: R51.9 Headache, unspecified (principal); G97.1 Other reaction to spinal and lumbar puncture; I10 Essential (primary) hypertension; E66.9 Obesity, unspecified; Z68.30 Body mass index [BMI] 30.0-30.9, adult; Z72.0 Tobacco use; Z79.82 Long term (current) use of aspirin; Z88.0 Allergy status to penicillin
CPT/HCPCS: 96374; 99283; J1885; J7030